=== PATIENT | female | born 1985 | race Caucasian/White ===

== ENCOUNTER → 2022-02-16 13:45 | Outpatient (CLI) | payer OTHER, SELFPAY ==
--- NOTE | ~2022-02-16 | US_ITS ---
EXAMINATION: US transvaginal DATE: 02/16/2022 14:12 INDICATION: Hypertrophy of the uterus. Pelvic pain. Comparison:No prior studies for comparison. TECHNIQUE: Multiple endovaginal sonographic images of the pelvis performed. FINDINGS: The uterus measures 7.8 x 5 x 5.1 cm. The endometrial complex measures 1 cm. The right ovary measures 3.2 x 3 x 3.8 cm and the left ovary measures 3.7 x 1.6 x 2.5 cm. There are small follicles in each ovary. Normal doppler signal in both ovaries. There is free fluid in the pelvis. There are no abnormal masses seen on either side. IMPRESSION: 1. Unremarkable pelvic ultrasound. Reviewed, dictated and finalized at location A.
== END ==
PROVIDERS: PCP Advanced Practice Midwife; Visit Provider Advanced Practice Midwife
DX: N85.2 Hypertrophy of uterus (principal); R10.2 Pelvic and perineal pain
CPT/HCPCS: 76830